=== PATIENT | female | born 1970 | race Caucasian/White ===

== ENCOUNTER 2017-07-15 09:41 | Emergency (ER) | payer OTHER ==
[~2017-07-15] VITALS: Wt 114.3 kg
== END 2017-07-15 13:35 | disposition short-term general hospital (02) ==
LOC: ED 09:41
DX: S02.69XA Fracture of mandible of other specified site, initial encounter for closed fracture (principal); F17.200 Nicotine dependence, unspecified, uncomplicated; Z90.49 Acquired absence of other specified parts of digestive tract; W55.12XA Struck by horse, initial encounter; Y93.89 Activity, other specified; Y92.89 Other specified places as the place of occurrence of the external cause; Y99.9 Unspecified external cause status